=== PATIENT | female | born 1965 | race Caucasian/White ===

== ENCOUNTER → 2023-03-24 13:07 | Outpatient (CLI) | payer BC, SELFPAY ==
--- NOTE | ~2023-03-24 | MM_ITS ---
EXAMINATION: MM screening nadine BI w jama HISTORY: Screening mammogram TECHNIQUE: Craniocaudal and mediolateral oblique 3-D tomosynthesis images were obtained and synthetic 2-D images were generated. CAD analysis was submitted and interpreted. COMPARISON: 04/22/2015, 05/27/2012 BREAST PARENCHYMAL COMPOSITION:The breasts are heterogeneously dense, which may obscure small masses. FINDINGS: No suspicious mass, calcification, or architectural distortion are identified in either jimmie ast to suggest malignancy. There has been no suspicious interval change. IMPRESSION: No mammographic evidence of malignancy. Recommend routine screening mammography in one year. BI-RADS Category 1: Negative Reviewed, dictated and finalized at location .
== END ==
DX: Z12.31 Encounter for screening mammogram for malignant neoplasm of breast (principal)
CPT/HCPCS: 77063; 77067